=== PATIENT | female | born 1960 | race Caucasian/White ===

== ENCOUNTER → 2018-10-08 | Outpatient (REF) ==
[~2018-10-08] MED LIST: CALCCHW12 PO; CARA1SUS OR; CELE20TA PO; LEVOXYL25 MCG PO; MISOPROSTOL PO; MULTIVIT PO; PROT1TAB2 PO; VITA100T PO; WELL100T PO
--- NOTE | 2018-10-09 02:03 | REP ---
Clinical: Pain and disability. Technique: AP, lateral, coned-down views of the lumbosacral spine. Findings: Lateral view suggests grade 1 anterolisthesis at L5-S1 of approximately 4.5 mm with possible chronic spondylolysis. Associated mild disc space narrowing is suggested. Mild degenerative changes throughout the remainder of the visualized thoracolumbar spine includes endplate sclerosis with subtle early spurring and minimal disc space narrowing. Impression: Degenerative changes as listed above. Electronically Signed by Alexis Soto MD 10/09/2018 01:55 A
--- NOTE | 2018-10-09 02:05 | REP ---
Clinical: Right hand pain. Technique: AP, lateral, bilateral oblique views of the right hand. Findings: Mild age-related changes include periarticular sclerosis with very minimal joint space narrowing involving the interphalangeal joints. No further overt osteoarthritic or inflammatory arthritic changes are appreciated. No acute fracture dislocation. Surrounding soft tissues are normal. 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 Electronically Signed by Alexis Soto MD 10/09/2018 01:57 A
== END ==
LOC: M SMT 10:21
PROVIDERS: ATTEND Internal Medicine
DX: M51.36 Other intervertebral disc degeneration, lumbar region (principal)